=== PATIENT | female | born 1955 | race African-American/Black ===

== ENCOUNTER 2016-12-20 06:47 | Emergency (ER) | payer OTHER ==
[~2016-12-20] VITALS: Ht 149.9 cm; Wt 87.0 kg
[2016-12-20 08:10] LABS: BASOPHILS % 0.5 % (0.0-2.0); EOSINOPHILS % 1.3 % (0.0-5.0); HEMATOCRIT. 38.4 % (36.0-48.0); LYMPHOCYTES % 25.1 % (20.0-50.0); MEAN CORPUSCULAR HEMOGLOBIN 29.7 pg (28.0-32.0); MEAN CORPUSCULAR VOLUME 87.6 fL (81.0-99.0); MEAN PLATELET VOLUME 10.2 fl (7.4-10.4); MONOCYTES % 6.4 % (2.0-8.0); NEUTROPHILS % 66.7 % (40.0-76.0); PLATELET 176 x1000/uL (130-400); RED BLOOD CELL COUNT 4.38 mill/uL (4.2-5.4); RED CELL DISTRIBUTION WIDTH 13.4 % (11.6-14.6)
[2016-12-20 08:16] LABS: CHLORIDE 106 mEq/L (98-107)
[2016-12-20 08:26] LABS: CARBON DIOXIDE 34 mEq/L (21-32)
[2016-12-20 09:20] VITALS: BP 140/76
== END 2016-12-20 09:39 | disposition home or self-care (01) ==
LOC: ER 06:47
DX: R53.1 Weakness (principal); M79.605 Pain in left leg; M79.604 Pain in right leg; E78.00 Pure hypercholesterolemia, unspecified; Z88.2 Allergy status to sulfonamides
CPT/HCPCS: 36415; 80053; 85025; 93005; 99285; Z7610